=== PATIENT | female | born 1980 ===

== ENCOUNTER 2017-09-14 16:18 | Emergency (ER) | payer SELFPAY ==
[2017-09-14 16:20] VITALS: BP 137/91; PULSE 98; RESP 17; TEMP 36.6; O2SAT 100; BMI 39.4
--- NOTE | 2017-09-14 16:42 | ED.VISSUMM ---
- ER Visit Summary Date of Service: 09/14/17 Chief Complaint: [Tension and headache] History of Present Illness: The patient is a 37 F [presents to the emergency department with complaint of hypertension. Patient states that she was at the urgent care 2 days ago and had systolic blood pressure in the 170s. Patient had a sinus infection and was started on Zithromax at that time. Patient also states that last couple of visits where she has had her blood pressure checked she has had systolics in the 150s and diastolics up to 105. Patient states that she had a sinus headache today and took some Motrin and now the headache from the sinuses, resolved but and has some pain in her head across both sides of the head. Patient denies any photophobia. Patient denies any nausea or vomiting. There is no family history of brain aneurysms or tumors. Patient denies any falls or head injuries. Currently she rates her headache a 5 or 6 out of 10. Patient states she has been under increased stress of late. Patient also with history of some anxiety.] Physical Examination: [HEENT-PERRLA, EOMI. Cranial nerves II through XII grossly intact. TMs clear. Mucous membranes moist. No adenopathy. Cardiovascular-regular rate and rhythm without murmur or ectopy Lungs-clear to auscultation, chest wall stable without crepitus or subcu emphysema Abdomen-normoactive bowel sounds, soft, nontender, no rebound or rigidity, no peritoneal signs. Neuro [id number]-[id number]-[id number] and heel to vaz testing within normal limits, negative Romberg, negative pronator drift, fundi benign Extremities-intact ?4, normal range of motion, normal pulses, atraumatic] Test Results: [Patient refused any testing.] Emergency Department Course and Treatment: [Given her symptomatology I offered to place an IV and give her medication to try to treat her headache. I also offered to get a scan of her head given that she has had increasing headaches over the last year. I also offered to perform some blood work and get an EKG given her hypertension issues. Patient at this point states that she just wants to go home and study for an exam that she has not does not want to have anything further done at this time.] Treatment Plan: [Patient advised to monitor her blood pressure once in the morning and once in the evening for at least a week and then follow-up with her primary care physician to discuss further treatment plan. Patient states that she recently gained some weight and incidentally her blood pressure started going up since that time. Patient is advised to watch her diet and salt intake and also increase her exercise.] Disposition: [Discharged home in stable condition] Impression: [Hypertension Cephalgia-suspect stress related ] This note was generated with [employer] dictation software. It may contain incorrect words, spelling, and punctuation that were not noted in review of the chart prior to signing ED Disposition - Plan for ED Patient: Chief Complaint: Hypertension Referrals: Donaldo Palacio DO [Primary Care Provider] -
--- NOTE | 2017-09-14 16:46 | ED.DEP ---
ED Disposition - Plan for ED Patient: Chief Complaint: Hypertension Instructions: ED HTN Established, ED Cephalgia Unspecified, Tension Headaches Referrals: Donaldo Palacio DO [Primary Care Provider] - 5-7 Days
[2017-09-14 17:00] VITALS: BP 154/108; PULSE 96; RESP 18
== END 2017-09-14 17:00 | disposition home or self-care (01) ==
LOC: ED 17:32
PROVIDERS: Emergency Provider Emergency Medicine; PCP Student in an Organized Health Care Education/Training Program
DX: I10 Essential (primary) hypertension (principal); R51 Headache
CPT/HCPCS: 99282